=== PATIENT | female | born 1955 | race American Indian/Alaskan Native ===

== ENCOUNTER 2021-04-10 13:12 | Outpatient (CLI) | payer OTHER ==
--- NOTE | 2021-04-11 10:21 | Electrocardiograph Report ---
[facility] Test Date: 2021-04-10 Test Time: 14:01:20 Pat Name: JENNIFER ALVARADO Department: Room: Gender: F [employer]: LAINEY : 1955 Requested By: BRUCE SAXENA Order Number: [id number] Reading MD: Phil Joseph Measurements Intervals [place] Rate: 58 P: 75 ME: 215 QRS: 23 QRSD: 83 T: QT: 392 QTc: 384 Interpretive Statements Sinus rhythm Borderline prolonged ME interval Borderline T abnormalities, diffuse leads No previous ECG available for comparison Electronically Signed On 04-11-2021 10:21:06 EST by Phil Joseph
== END 2021-04-10 13:13 | disposition home or self-care (01) ==
LOC: XRAY 13:12
PROVIDERS: ATTEND Internal Medicine
DX: R07.9 Chest pain, unspecified (principal)
CPT/HCPCS: 93005; 93010